=== PATIENT | male | born 1985 | race Caucasian/White ===

== ENCOUNTER 2016-06-19 13:24 | Emergency (ER) | payer OTHER ==
[2016-06-19 14:29] VITALS: BP 128/92
--- NOTE | 2016-06-19 14:39 | UC ---
Skin Complaint HPI - HPI Summary HPI Summary: 30 yo male with fatigue/lassitude/myalgias and headache x days recently removed an engorged tick from his scalp no rash no documented fever - History of Current Complaint Chief Complaint: UCGeneralIllness Time Seen by Provider: 06/19/16 14:31 Stated Complaint: TICK BITE Onset/Duration: Sudden Onset, Lasting Days Onset Severity: Mild Current Severity: Mild Pain Intensity: 4 Pain Scale Used: 0-10 Numeric Associated Signs & Symptoms: Positive: Negative Related History: Insect Bite/Sting - Allergy/Home Medications Allergies/Adverse Reactions: Allergies Allergy/AdvReac Type Severity Reaction Status Date / Time No Known Allergies Allergy Verified 06/19/16 14:29 Home Medications: Home Medications Loperamide CAP* [Imodium CAP*] 2 mg PO Q4H PRN 06/19/16 [History Confirmed 06/19] Review of Systems Constitutional: Fatigue Skin: Negative Eyes: Negative ENT: Negative Respiratory: Negative Cardiovascular: Negative Gastrointestinal: Diarrhea Genitourinary: Negative Motor: Negative Neurovascular: Negative Musculoskeletal: Myalgia Neurological: Headache Psychological: Negative All Other Systems Reviewed And Are Negative: Yes PMH/Surg Hx/FS Hx/Imm Hx Previously Healthy: Yes - Surgical History Surgical History: None - Family History Known Family History: Positive: Hypertension Negative: Cardiac Disease, Diabetes - Social History Alcohol Use: Rare Substance Use Type: None Smoking Status (MU): Never Smoked Tobacco - Immunization History Most Recent Tetanus Shot: unknown Physical Exam Triage Information Reviewed: Yes Appearance: Well-Appearing, No Pain Distress, Well-Nourished Vital Signs: Initial Vital Signs Temp 97.5 F 06/19/16 14:25 Pulse 88 06/19/16 14:25 Resp 16 06/19/16 14:25 BP 128/92 06/19/16 14:25 Pulse Ox 100 06/19/16 14:25 Vital Signs Reviewed: Yes Eyes: Positive: Conjunctiva Clear ENT: Positive: Hearing grossly normal. Negative: Normal ENT inspection, Nasal congestion, Nasal drainage, Tonsillar swelling, Tonsillar exudate, Trismus, Muffled/hoarse voice Neck exam: Normal Neck: Positive: Nontender, No Lymphadenopathy Respiratory: Positive: Lungs clear, Normal breath sounds, No respiratory distress Cardiovascular: Positive: RRR, No Murmur, Pulses Normal Musculoskeletal: Positive: ROM Intact, No Edema Neurological: Positive: Alert, Muscle Tone Normal Psychological Exam: Normal Skin Exam: Normal Course/Dx - Diagnoses Provider Diagnoses: tick bite. ? lyme disease Discharge - Discharge Plan Condition: Stable Disposition: HOME Prescriptions: DOXYcycline CAP(*) [DOXYcycline 100MG CAP(*)] 100 mg PO BID #42 cap Patient Education Materials: Tick Bite (ED) Referrals: [facility] [place] [facility]IAN REFERRAL [Outside] Additional Instructions: we will treat you for possible lyme disease you should attempt to find a local edge brusher for follow up you have a BP that is slightly elevated (prehypertension) and should be followed
== END 2016-06-19 14:50 | disposition home or self-care (01) ==
LOC: UCCORT 13:24
DX: S00.06XA Insect bite (nonvenomous) of scalp, initial encounter (principal); W57.XXXA Bitten or stung by nonvenomous insect and other nonvenomous arthropods, initial encounter; Y93.9 Activity, unspecified; Y92.9 Unspecified place or not applicable; R53.83 Other fatigue; M79.1 Myalgia; R51 Headache
CPT/HCPCS: 99212; G0463

== ENCOUNTER 2017-10-03 15:24 | Emergency (ER) | payer OTHER ==
[2017-10-03 15:57] VITALS: BP 127/80
--- NOTE | 2017-10-03 16:23 | UC ---
Upper Extremity HPI - HPI Summary HPI Summary: 31 y/o mal presents to the urgent care c/o Rt shoulder pain radiating to his elbow and RT hand at times for the past 2 weeks. 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 Pt states symptoms has worsen for the past 2 days. At night time pain radiates to the RT elbow and Rt hand and it is like a burning pain at times. Today he feels mild numbness and tingling over the RT middle and ring finger. He has seen Chiropractor yesterday w/o any improvement. Pt denies any injury, and it is painful to raise his arm at times. Pt denies fever, SOB, chest pain, abdominal pain, N/V/D. Pt has taking Advil PO at night time to alleviate symptoms. - History of Current Complaint Chief Complaint: UCUpperExtremity Stated Complaint: RIGHT SHOULDER/ARM PAIN Time Seen by Provider: 10/03/17 16:14 Hx Obtained From: Patient Onset/Duration: Gradual Onset, Lasting Weeks - 2, Still Present, Worse Since - 2 days Severity Initially: Mild Severity Currently: Moderate Pain Intensity: 6 Pain Scale Used: 0-10 Numeric Location Of Pain: Is Discrete @ - RT shoulder,, Radiates To - Rt elbow and RT hand Character: Sharp Aggravating Factor(s): Movement, Lifting, Abduction Alleviating Factor(s): OTC Meds Associated Signs And Symptoms: Positive: Numbness/Tingling - RT middle and ring fingers. Negative: Swelling, Redness, Fever, Weakness Related History: Dominant Hand Right - Risk Factors Non-Orthopedic Risk Factor: Negative DVT Risk Factors: Negative Septic Arthritis Risk Factor: Negative - Allergies/Home Medications Allergies/Adverse Reactions: Allergies Allergy/AdvReac Type Severity Reaction Status Date / Time No Known Allergies Allergy Verified 10/03/17 15:57 PMH/Surg Hx/FS Hx/Imm Hx Previously Healthy: Yes - Pt denies PMHX - Surgical History Surgical History: None - Family History Known Family History: Positive: Hypertension Negative: Cardiac Disease, Diabetes - Social History Occupation: Employed Full-time Lives: With Family Alcohol Use: Occasionally Substance Use Type: None Smoking Status (MU): Never Smoked Tobacco - Immunization History Most Recent Tetanus Shot: unknown Review of Systems Constitutional: Negative Skin: Negative Eyes: Negative ENT: Negative Respiratory: Negative Cardiovascular: Negative Gastrointestinal: Negative Genitourinary: Negative Motor: Negative Neurovascular: Negative Musculoskeletal: Decreased ROM - RT shoulder, Other: - RT shoulder pain radiating to the RT elbow and hand Neurological: Paresthesia - RT middle and ring finger Psychological: Negative Is Patient Immunocompromised?: No All Other Systems Reviewed And Are Negative: Yes Physical Exam - Summary Physical Exam Summary: Vital Signs Reviewed: Yes GENERAL: Well-Appearing, No Pain Distress, Well-Nourished female w/o any apparent pain distress Eyes: Positive: Conjunctiva Clear - PERRL,EOMI ENT: Positive: Normal ENT inspection, Hearing grossly normal, Pharyngeal erythema - mild, Nasal drainage - clear, Uvula midline Neck: Positive: Supple, Nontender, No Lymphadenopathy Respiratory: Positive: Chest non-tender, Lungs clear, Normal breath sounds, No respiratory distress Cardiovascular: Positive: RRR, No Murmur, Pulses Normal, Brisk Capillary Refill Abdomen Description: Positive: Nontender, No Organomegaly, Soft. Negative: CVA Tenderness (R), CVA Tenderness (L) Bowel Sounds: Positive: Present Musculoskeletal: RT shoulder: The RT shoulder is with/without obvious asymmetry or deformity when compared to the L shoulder. posterior shoulder w/ ecchymosis and bruising, no crepitus. No bony deformity or prominence of humeral head. No erythema, warmth. No Point Tenderness to palpation over the clavicle, or scapula. positive tenderness over Acromioclavicular joint and humeral head w/o swelling, NT to palpation of the bicipital groove . NT to palpation of the muscles of the sternocleidomastoid, pectoralis, biceps/triceps , deltoid, trapezius, . Limited ROM due to pain especially in abduction.on both passive and active, internal/external rotation, flexion/extension. "empty can and drop arm test unable to perform due to pain. No axillary tenderness or lymphadenopathy. Normal sensation over the deltoid and fingers. Distal motor and neurovascular status is intact. RT hand No bony crepitus. Point tenderness over the thenar eminence and ventral side of wrist. No scaphoid fullness or tenderness to direct palpation or axial load. Decreased ROM due to pain. Motor/ sensory function of ulnar, radial, median nerves intact. Ulnar and radial pulses intact.Positive Phalen and negative Tinels and Positive Zhang test Neurological Exam: Normal Psychological Exam: Normal Skin Exam: Normal Triage Information Reviewed: Yes Vital Signs: Initial Vital Signs Temp 98.6 F 10/03/17 15:51 Pulse 89 10/03/17 15:51 Resp 18 10/03/17 15:51 BP 127/80 10/03/17 15:51 Pulse Ox 100 10/03/17 15:51 Upper Extremity Course/Dx - Course Course Of Treatment: 31 y/o mal presents to the urgent care c/o Rt shoulder pain radiating to his elbow and RT hand at times for the past 2 weeks. 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 Pt states symptoms has worsen for the past 2 days. At night time pain radiates to the RT elbow and Rt hand and it is like a burning pain at times. Today he feels mild numbness and tingling over the RT middle and ring finger. He has seen Chiropractor yesterday w/o any improvement. Pt denies any injury, and it is painful to raise his arm at times. Pt denies fever, SOB, chest pain, abdominal pain, N/V/D. Pt has taking Advil PO at night time to alleviate symptoms. Hx obtained. RT shoulder X-ray ordered: Impression: No acute osseous injury observed. Pt's Rx Ibuprofen to alleviate symptoms. Shoulder immobilized with a shoulder sling for comfort. Advised to f/ u with PT referral for further evaluation and Orthopedic referral from Sports Medicine if not improvement of symptoms.D/c instructions explained. Pt understood and agreed w/ plan of care. - Differential Dx/Diagnosis Differential Diagnosis/HQI/PQRI: Arthritis, Fracture (Closed), Strain, Sprain, Other - capel tunel syndrome, tenosynovitis, Provider Diagnoses: 1- RT shoulder pain. 2- RT hand Carpal tunnel syndrome and DeQuervains tenosynovitis, Discharge - Sign-Out/Discharge Documenting (check all that apply): Patient Departure All imaging exams completed and their final reports reviewed: Yes - Discharge Plan Condition: Stable Disposition: HOME Prescriptions: Ibuprofen TAB* [Motrin TAB* 800 MG] 800 mg PO Q6H PRN #30 tab PRN Reason: Pain Patient Education Materials: De Quervain Disease (ED), Shoulder Pain (ED) Forms: *Work Release Referrals: [facility] [place] [facility]IAN REFERRAL [Outside] - 3 Days [facility] [Provider Group] - 3 Days Additional Instructions: 1-Please take Ibuprofen PO q6-8hrs prn after meals as directed to alleviate pain and swelling. 2-Please apply ice, keep your hand immobilized with the splint. Avoid heavy lifting. avoid strenuous exercise 3- Please f/u with Orthopedic Sports Medicine in 1 week is not improvement of symptoms for further evaluation and treatment. 4-F/u Physical Therapy referral for further evaluation and treatment What is carpal tunnel syndrome? Carpal tunnel syndrome is a condition that causes pain and numbness in the fingers and hands, and sometimes the arms. It happens when a nerve in the wrist called the "median nerve" gets pinched or squeezed. The median nerve goes through a tunnel in the wrist that is formed by the bones of the wrist and a tough band of tissue called a "ligament" . Experts do not know exactly how the nerve can get pinched, but they think it might happen when: -Tendons that go through the same tunnel get swollen (tendons are bands of tissue that connect muscles to bones) -Tissues surrounding the tendons harden -People hold their hands in a position that makes the tunnel smaller -People use their hands for work that involves repetitive or forceful movements The median nerve carries signals about sensation it tells the brain what the hand is "feeling." It gets input from these parts of the hand: -Thumb -Index finger -Middle finger -Parts of the ring finger -Parts of the palm closest to the thumb - Billing Disposition and Condition Condition: STABLE Disposition: Home
[2017-10-03] MEDS ORDERED: Ibuprofen TAB* 400 MG PO ONE (16:30)
--- NOTE | 2017-10-03 17:04 | RAD ---
Indication: Right shoulder pain. 4 views of the right shoulder demonstrates no fracture. No other bone or joint abnormality is identified. IMPRESSION: Unremarkable right shoulder.
--- NOTE | 2017-10-04 07:52 | UC ---
Discharge - Sign-Out/Discharge Documenting (check all that apply): Post-Discharge Follow Up All imaging exams completed and their final reports reviewed: Yes - Discharge Plan Condition: Stable Disposition: HOME Prescriptions: Ibuprofen TAB* [Motrin TAB* 800 MG] 800 mg PO Q6H PRN #30 tab PRN Reason: Pain Patient Education Materials: De Quervain Disease (ED), Shoulder Pain (ED) Forms: *Work Release Referrals: [facility] [place] [facility] REFERRAL [Outside] - 3 Days Additional Instructions: 1-Please take Ibuprofen PO q6-8hrs prn after meals as directed to alleviate pain and swelling. 2-Please apply ice, keep your hand immobilized with the splint. Avoid heavy lifting. avoid strenuous exercise 3- Please f/u with Orthopedic Sports Medicine in 1 week is not improvement of symptoms for further evaluation and treatment. 4-F/u Physical Therapy referral for further evaluation and treatment What is carpal tunnel syndrome? Carpal tunnel syndrome is a condition that causes pain and numbness in the fingers and hands, and sometimes the arms. It happens when a nerve in the wrist called the "median nerve" gets pinched or squeezed. The median nerve goes through a tunnel in the wrist that is formed by the bones of the wrist and a tough band of tissue called a "ligament" . Experts do not know exactly how the nerve can get pinched, but they think it might happen when: -Tendons that go through the same tunnel get swollen (tendons are bands of tissue that connect muscles to bones) -Tissues surrounding the tendons harden -People hold their hands in a position that makes the tunnel smaller -People use their hands for work that involves repetitive or forceful movements The median nerve carries signals about sensation it tells the brain what the hand is "feeling." It gets input from these parts of the hand: -Thumb -Index finger -Middle finger -Parts of the ring finger -Parts of the palm closest to the thumb - Billing Disposition and Condition Condition: STABLE Disposition: Home
== END 2017-10-03 17:30 | disposition home or self-care (01) ==
LOC: UCCORT 15:24
DX: M25.511 Pain in right shoulder (principal)
CPT/HCPCS: 99213; A9270-GY; G0463